=== PATIENT | female | born 1965 | race Caucasian/White ===

== ENCOUNTER 2018-08-31 13:54 | Emergency (ER) | payer MEDICAID, OTHER ==
[~2018-08-31] VITALS: Ht 157.5 cm; Wt 63.4 kg
[2018-08-31 14:01] VITALS: BP 130/71
== END 2018-08-31 16:16 | disposition home or self-care (01) ==
LOC: ED 16:10
DX: S63.511A Sprain of carpal joint of right wrist, initial encounter (principal); G89.11 Acute pain due to trauma; M25.562 Pain in left knee; I10 Essential (primary) hypertension; W01.0XXA Fall on same level from slipping, tripping and stumbling without subsequent striking against object, initial encounter; Y93.89 Activity, other specified; Y92.69 Other specified industrial and construction area as the place of occurrence of the external cause; Y99.8 Other external cause status
CPT/HCPCS: 99283